=== PATIENT | female | born 1950 | race Caucasian/White ===

== ENCOUNTER 2018-10-01 11:13 | Emergency (ER) | payer MEDICARE, OTHER ==
--- NOTE | 2018-10-01 12:00 | ED ---
General Adult HPI - General Chief complaint: Extremity Injury, Lower Stated complaint: knee pain Time Seen by Provider: 10/01/18 11:29 Source: patient, RN notes reviewed Mode of arrival: wheelchair Limitations: no limitations - History of Present Illness Initial comments: 68-year-old female presents to the emergency department for a chief complaint of right knee pain. States this is in the posterior aspect of her knee. Sates that for the past couple days she has noticed her knee has been somewhat painful. States that yesterday she was walking when she felt a pop in the back of her knee. States it has been very painful since that time. States it is painful to bear weight on. Denies any fevers or chills. Patient does state that the pain is in the posterior aspect of the knee. States that she traveled eye car from [place] last week. Denies any history of blood clots. Denies any blood thinners. Denies any fevers or chills. No history of gout.Patient has no other complaints at this time including shortness of breath, chest pain, abdominal pain, nausea or vomiting, headache, or visual changes. - Related Data Home Medications Medication Instructions Recorded Confirmed Atenolol [Tenormin] 50 mg PO DAILY 10/01/18 10/01/18 Atorvastatin Calcium [Lipitor] 40 mg PO HS 10/01/18 10/01/18 Ezetimibe [Zetia] 10 mg PO HS 10/01/18 10/01/18 Melatonin 10 mg PO HS 10/01/18 10/01/18 Multivitamins, Thera [Multivitamin 1 tab PO DAILY 10/01/18 10/01/18 (formulary)] Allergies Allergy/AdvReac Type Severity Reaction Status Date / Time No Known Allergies Allergy Verified 10/01/18 11:51 Review of Systems ROS Statement: Those systems with pertinent positive or pertinent negative responses have been documented in the HPI. ROS Other: All systems not noted in ROS Statement are negative. Past Medical History Past Medical History: No Reported History History of Any Multi-Drug Resistant Organisms: None Reported Additional Past Surgical History / Comment(s): keith link Past Psychological History: No Psychological Hx Reported Smoking Status: Never smoker Past Alcohol Use History: Occasional Past Drug Use History: None Reported General Exam Limitations: no limitations General appearance: alert, in no apparent distress Head exam: Present: atraumatic, normocephalic, normal inspection Eye exam: Present: normal appearance, PERRL, EOMI. Absent: scleral icterus, conjunctival injection, periorbital swelling ENT exam: Present: normal exam, mucous membranes moist Neck exam: Present: normal inspection, full ROM. Absent: tenderness, meningismus, lymphadenopathy Respiratory exam: Present: normal lung sounds bilaterally. Absent: respiratory distress, wheezes, rales, rhonchi, stridor Cardiovascular Exam: Present: regular rate, normal rhythm, normal heart sounds. Absent: systolic murmur, diastolic murmur, rubs, gallop, clicks Extremities exam: Present: tenderness (Tenderness to the posterior aspect of the knee as well as the proximal lower leg), normal capillary refill (Capillary refill less than 2 seconds, DP pulse 2+ in the right lower extremity), joint swelling (She does have some edema noted of the right knee joint however no erythema or increased warmth), calf tenderness (Mild tenderness noted to the calf, proximal aspect. No erythema or edema, no increased warmth, negative Homans sign). Absent: full ROM (Patient has 90 flexion of the right knee before having pain) Neurological exam: Present: alert, oriented X3, CN II-XII intact Psychiatric exam: Present: normal affect, normal mood Course Vital Signs 10/01/18 10/01/18 11:15 14:39 Temperature 98.9 F 97.8 F Pulse Rate 68 65 Respiratory 20 18 Rate Blood Pressure 157/78 144/89 O2 Sat by Pulse 99 99 Oximetry Medical Decision Making - Medical Decision Making 68-year-old female presents for pain in the right knee. Patient states she took a step yesterday and felt a pop in the back of her knee. States it is painful to walk on. Denies fevers or chills.No acute fracture or dislocation in the right knee. There is a periosteal reaction in the proximal fibular diaphysis and mid fibular diaphysis. This could be on the basis of prior fracture deformity. In the absence of this recommend MRI for underlying neoplasm. There is mild tricompartmental arthropathy as well. Right leg is negative for DVT. CARROLL was performed at this time and was found to be 1.09 with right brachial systolic of 144 in the right ankle systolic of 157. No significant concern for arterial injury, patient has a DP pulses 2+ and a normal CARROLL. At this time patient was given a knee immobilizer and orthopedic follow-up for MRI. She will return here if she has any worsening symptoms. Disposition Clinical Impression: Knee pain, right Disposition: HOME SELF-CARE Condition: Good Instructions (If sedation given, give patient instructions): Knee Sprain (ED), Knee Pain (ED) Additional Instructions: Please follow up with orthopedics in one to 2 days. Please use knee immobilizer. If you're having any worsening symptoms return here to the emergency department. Is patient prescribed a controlled substance at d/c from ED?: No Referrals: Nonstaff,Physician [Primary Care Provider] - 1-2 days Jass Fermin DO [Medical Doctor] - 1-2 days Time of Disposition: 14:21
--- NOTE | 2018-10-01 12:30 | XR ---
EXAMINATION TYPE: XR knee complete RT DATE OF EXAM: 10/01/2018 CLINICAL HISTORY: Posterior knee pain with no known trauma TECHNIQUE: Three views of the right knee are obtained. COMPARISON: None. FINDINGS: There is no acute fracture/dislocation evident in right knee. The tri-compartment joint s paces demonstrate very small marginal osteophytes and joint space narrowing of the patellofemoral com partment. The overlying soft tissue appears unremarkable. IMPRESSION: 1. No acute fracture or dislocation in the right knee. 2. Periosteal reaction is seen of the proximal fibular diaphysis and mid fibular diaphysis. This coul d be on the basis of prior fracture deformity however correlation with history of trauma is recommend ed. In the absence of prior fracture MRI with contrast could be recommended to evaluate for evaluatio n of underlying neoplasm. 3. Mild tricompartmental arthropathy.
--- NOTE | 2018-10-01 13:22 | US ---
EXAMINATION TYPE: US venous doppler duplex LE RT DATE OF EXAM: 10/01/2018 1:15 PM COMPARISON: NONE CLINICAL HISTORY: Pain. Just got back from hours in a car travelling. Rt knee pain. No hx of blood clots. No blood thinners. No redness. No swelling. SIDE PERFORMED: Right TECHNIQUE: The lower extremity deep venous system is examined utilizing real time linear array sonog susanne with graded compression, doppler sonography and color-flow sonography. VESSELS IMAGED: External Iliac Vein (EIV) Common Femoral Vein Deep Femoral Vein Greater Saphenous Vein * Femoral Vein Popliteal Vein Small Saphenous Vein * Proximal Calf Veins (* superficial vessels) Grayscale, color doppler, spectral doppler imaging performed of the deep veins of the right lower ext remity. There is normal flow, compressibility, vascular waveforms. Right Leg: Negative for DVT IMPRESSION: No sonographic evidence of deep venous thrombosis within the right lower extremity.
[2018-10-01 14:43] VITALS: BP 144/89; PULSE 65; RESP 18; TEMP 97.8
== END 2018-10-01 14:39 | disposition home or self-care (01) ==
LOC: EC 11:13
DX: M25.561 Pain in right knee (principal); Z79.899 Other long term (current) drug therapy
CPT/HCPCS: 99284